=== PATIENT | female | born 1965 | race Caucasian/White ===

== ENCOUNTER 2017-05-08 20:23 | Inpatient (IN) | payer MEDICARE, BC, MEDICAID ==
[~2017-05-08] VITALS: Ht 152.4 cm; Wt 71.7 kg
[2017-05-08] MEDS ORDERED: ALPR3TAB PO (21:39)
--- NOTE | 2017-05-08 22:21 | NUR ---
Call placed to [facility] nephrology, Dr. Blackmon will be paged.
--- NOTE | 2017-05-08 22:25 | NUR ---
ANAYELI speaking to Dr. Blackmon.
[2017-05-08 22:45] LABS: *URINE HCG, QUAL NEGATIVE (NEGATIVE)
[2017-05-08 22:52] LABS: BASOPHILS % (AUTO) 0.4 % (0.0-2.0); EOSINOPHILS # (AUTO) 0.2 K/uL (0.0-0.7); EOSINOPHILS % (AUTO) 1.6 % (0.0-7.0); HEMATOCRIT 38.2 % (37-47); HEMOGLOBIN 12.9 G/DL (12.0-16.0); LYMPHOCYTES # (AUTO) 3.7 K/UL (0.8-4.8); LYMPHOCYTES % (AUTO) 30.2 % (20.5-51.5); MEAN CORPUSCULAR HEMOGLOBIN 32.1 UUG (27.0-31.0); MEAN CORPUSCULAR HGB CONC 34 g/dL (32.0-37.0); MEAN CORPUSCULAR VOLUME 95.2 FL (81.0-99.0); MONOCYTES # (AUTO) 0.7 K/UL (0.1-1.30); MONOCYTES % (AUTO) 5.8 % (0.0-11.0); NEUTROPHILS # (AUTO) 7.7 K/UL (1.8-8.9); PLATELET COUNT (AUTO) 352 K/UL (150-450); RED BLOOD CELL COUNT(AUTO) 4.01 MIL/UL (4.2-5.4); WHITE BLOOD COUNT (AUTO) 12.3 K/UL (4.0-11.2)
[2017-05-08 23:05] LABS: ALANINE AMINOTRANSFERASE 20 U/L (14-59); ALKALINE PHOSPHATASE 71 U/L (50-136); ASPARTATE AMINOTRANSFERASE 9 U/L (15-37); BILIRUBIN,DIRECT < 0.1 mg/dL (0.0-0.2); BILIRUBIN,TOTAL 0.1 mg/dL (0.2-1.0); CARBON DIOXIDE 30 mmol/L (21-32); CHLORIDE 104 mmol/L (98-107); CREATININE 0.7 mg/dL (0.6-1.3); GLUCOSE 91 mg/dL (74-106); POTASSIUM 3.9 mmol/L (3.5-5.1); TOTAL PROTEIN, SERUM 6.5 g/dL (6.4-8.2); UREA NITROGEN, BLOOD 24 mg/dL (7-18)
--- NOTE | 2017-05-08 23:17 | NUR ---
Pt. admitted to [facility], under care of Dr. Blackmon Belongs List completed
--- NOTE | 2017-05-08 23:25 | NUR ---
Admitted a 51 year old female from ER via wheelchair. AAO x 4, very talkative, presenting multiple health issues and complaints. Ambulated to the bathroom, voiding good. Routine admission care done. Plan of care initiated.
[2017-05-08 23:45] VITALS: BP 134/77
[2017-05-09] MEDS ORDERED: ONDANSETRON 4 MG/2 ML VIAL IV PRN
[2017-05-09] MEDS ORDERED: ACETAMINOPHEN 325 MG TABLET PO PRN
--- NOTE | 2017-05-09 01:02 | NUR ---
Patient asked what pain medication been ordered for her and when told her that there's Chula ordered, reacted and said "that does not work for me." Asked if she has pain, she said "I always in pain but nobody wants to give me pain medication" Offered Chula for a try or even to ease the pain a little that she has but declined, assuming that its not helping her at all.
[2017-05-09] MEDS: HYDROCODONE/APAP 5-325MG TABLET PO PRN ×2 (01:38→08:04)
[2017-05-09] MEDS: ZOLPIDEM 5 MG TABLET PO PRN (01:38)
--- NOTE | 2017-05-09 01:41 | NUR ---
Medicated for pain as needed and ordered. Will monitor.
[2017-05-09] MEDS ORDERED: HYDROCODONE/APAP 5-325MG TABLET ONE (01:47)
[2017-05-09] MEDS ORDERED: ZOLPIDEM 5 MG TABLET ONE (01:47)
[2017-05-09 05:30] VITALS: BP 105/59
--- NOTE | 2017-05-09 06:00 | NUR ---
Still sleeping during rounds. No further complaint presented. All needs attended and met. No significant event reported all night. Continue care as planned.
[2017-05-09 06:49] LABS: BASOPHILS # (AUTO) 0.1 K/uL (0.0-8.0); BASOPHILS % (AUTO) 0.6 % (0.0-2.0); EOSINOPHILS # (AUTO) 0.2 K/uL (0.0-0.7); EOSINOPHILS % (AUTO) 2.2 % (0.0-7.0); HEMATOCRIT 37.8 % (37-47); HEMOGLOBIN 12.9 G/DL (12.0-16.0); LYMPHOCYTES # (AUTO) 4.2 K/UL (0.8-4.8); MEAN CORPUSCULAR HEMOGLOBIN 32.2 UUG (27.0-31.0); MEAN CORPUSCULAR HGB CONC 34 g/dL (32.0-37.0); MEAN CORPUSCULAR VOLUME 94.7 FL (81.0-99.0); MONOCYTES # (AUTO) 0.7 K/UL (0.1-1.30); MONOCYTES % (AUTO) 6.1 % (0.0-11.0); NEUTROPHILS # (AUTO) 5.8 K/UL (1.8-8.9); NEUTROPHILS % (AUTO) 53.1 % (38.5-71.5); PLATELET COUNT (AUTO) 352 K/UL (150-450); RED BLOOD CELL COUNT(AUTO) 3.99 MIL/UL (4.2-5.4)
[2017-05-09 07:16] LABS: CREATININE 0.7 mg/dL (0.6-1.3); MAGNESIUM 1.8 mg/dL (1.8-2.4); PHOSPHOROUS 4.1 mg/dL (2.5-4.9)
[2017-05-09] MEDS: PANTOPRAZOLE SODIUM 40 MG TABLET.DR PO SCH (08:04)
--- NOTE | 2017-05-09 10:04 | NUR ---
PT REQUESTED VALIUM, XANAX, ATIVAN AND MORPHINE. STATING"NORCO AND AMBIEN DOES NOT WORK". EXPLAINED TO DR. OSWALD PATIENT'S CONCERNS. PER DR. OSWALD "VALIUM 5MG TID PRN, NO FOR XANAX, ATIVAN AND MORPHINE, INCREASE NORCO TO 10-325MG". ORDER NOTED, CARRIED OUT. EXPLAINED TO THE PT DOCTOR'S DECISION.
[2017-05-09 11:51] VITALS: BP 106/74
[2017-05-09] MEDS: DIAZEPAM 5 MG TABLET PO PRN ×2 (13:50→22:31)
[2017-05-09] MEDS: HYDROCODONE/APAP 10-325 MG TABLET PO PRN ×2 (16:12→22:45)
[2017-05-09 16:17] LABS: *BILIRUBIN,URIN NEGATIVE (NEGATIVE); *BLOOD, URINE NEGATIVE (NEGATIVE); *CLARITY,URINE CLEAR (CLEAR); *COLOR,URINE YELLOW (YELLOW); *KETONES,URINE NEGATIVE (NEGATIVE); *PROTEIN,URINE NEGATIVE (NEGATIVE); *UROBILINOGEN,URINE 0.2 E.U./dl (NORMAL); LEUKOCYTE ESTERASE ,URINE NEGATIVE (NEGATIVE); NITRITE, URINE NEGATIVE (NEGATIVE); UGLUCOSE NEGATIVE (NEGATIVE)
[2017-05-09 16:31] VITALS: BP 108/71
[2017-05-09 16:44] LABS: BACTERIA,URINE NONE SEEN /HPF (NONE SEEN); RBC,URINE 0-3 /HPF (0-3); SQUAMOUS EPITHELIAL CELL,UR FEW /HPF (NONE SEEN); WBC,URINE 0-3 /HPF (0-3)
--- NOTE | 2017-05-09 19:23 | NUR ---
NO CHANGES NOTED. PT IS LAYING IN BED COMFORTABLY. NO S/S OF RESPIRATORY DISTRESS NOTED. NO PAIN NOTED. ALL SAFETY NEEDS ARE MET.
[2017-05-09 20:00] VITALS: BP 101/65
[2017-05-10] MEDS: ZOLPIDEM 5 MG TABLET PO PRN ×2 (01:47→22:40)
[2017-05-10 04:00] VITALS: BP 109/74
[2017-05-10 05:21] VITALS: BP 109/74
[2017-05-10] MEDS: PANTOPRAZOLE SODIUM 40 MG TABLET.DR PO SCH (06:06)
[2017-05-10 06:47] LABS: *BILIRUBIN,URIN NEGATIVE (NEGATIVE); *BLOOD, URINE NEGATIVE (NEGATIVE); *KETONES,URINE NEGATIVE (NEGATIVE); *PROTEIN,URINE NEGATIVE (NEGATIVE); *UROBILINOGEN,URINE 0.2 E.U./dl (NORMAL); LEUKOCYTE ESTERASE ,URINE NEGATIVE (NEGATIVE); NITRITE, URINE NEGATIVE (NEGATIVE); PH,URINE 5.5 (5.0-8.0); UGLUCOSE NEGATIVE (NEGATIVE)
[2017-05-10 06:50] LABS: *CLARITY,URINE SLIGHTLY HAZY (CLEAR); *COLOR,URINE LIGHT YELLOW (YELLOW)
[2017-05-10 06:59] LABS: BACTERIA,URINE FEW /HPF (NONE SEEN); RBC,URINE NONE SEEN /HPF (0-3); WBC,URINE 0-3 /HPF (0-3)
[2017-05-10 07:00] LABS: SQUAMOUS EPITHELIAL CELL,UR FEW /HPF (NONE SEEN)
[2017-05-10] MEDS ORDERED: PANTOPRAZOLE SODIUM 40 MG TABLET.DR PO SCH (07:00)
[2017-05-10 07:25] LABS: BASOPHILS % (AUTO) 0.4 % (0.0-2.0); EOSINOPHILS # (AUTO) 0.2 K/uL (0.0-0.7); EOSINOPHILS % (AUTO) 2.3 % (0.0-7.0); HEMATOCRIT 41.4 % (37-47); HEMOGLOBIN 14.2 G/DL (12.0-16.0); LYMPHOCYTES # (AUTO) 2.7 K/UL (0.8-4.8); LYMPHOCYTES % (AUTO) 30.2 % (20.5-51.5); MEAN CORPUSCULAR HEMOGLOBIN 32.6 UUG (27.0-31.0); MEAN CORPUSCULAR HGB CONC 34 g/dL (32.0-37.0); MEAN CORPUSCULAR VOLUME 95.3 FL (81.0-99.0); MONOCYTES # (AUTO) 0.7 K/UL (0.1-1.30); MONOCYTES % (AUTO) 7.8 % (0.0-11.0); NEUTROPHILS # (AUTO) 5.3 K/UL (1.8-8.9); NEUTROPHILS % (AUTO) 59.3 % (38.5-71.5); PLATELET COUNT (AUTO) 355 K/UL (150-450); RED BLOOD CELL COUNT(AUTO) 4.34 MIL/UL (4.2-5.4); WHITE BLOOD COUNT (AUTO) 8.9 K/UL (4.0-11.2)
[2017-05-10 08:04] LABS: CREATININE 0.7 mg/dL (0.6-1.3); MAGNESIUM 1.8 mg/dL (1.8-2.4); PHOSPHOROUS 4.6 mg/dL (2.5-4.9); POTASSIUM 4.1 mmol/L (3.5-5.1)
[2017-05-10 08:08] LABS: *CREATININE,URINE 27.7 mg/dL (30-125)
[2017-05-10 08:14] LABS: *URINE TOTAL PROTEIN RANDOM < 6.0 mg/dL (<150/24HR)
[2017-05-10] MEDS: HYDROCODONE/APAP 10-325 MG TABLET PO PRN (09:29)
[2017-05-10] MEDS: DIAZEPAM 5 MG TABLET PO PRN ×2 (10:55→21:35)
[2017-05-10 11:51] VITALS: BP 110/72
[2017-05-10] MEDS: OXYCODONE HCL 5 MG TABLET PO PRN ×2 (15:35→21:35)
[2017-05-10 15:44] VITALS: BP 118/71
[2017-05-10 20:00] VITALS: BP 121/76
[2017-05-11] MEDS: OXYCODONE HCL 5 MG TABLET PO PRN ×3 (03:20→16:35)
[2017-05-11 04:29] VITALS: BP 112/78
[2017-05-11] MEDS: DIAZEPAM 5 MG TABLET PO PRN ×2 (04:54→14:40)
--- NOTE | 2017-05-11 07:00 | NUR ---
pt is laying in bed comfortably. no s/s of respiratory distress noted. no pain reported. all safety needs are met. will continue to monitor.
[2017-05-11] MEDS: PANTOPRAZOLE SODIUM 40 MG TABLET.DR PO SCH (07:15)
--- NOTE | 2017-05-11 07:54 | NUR ---
PT NOT SLEEPING WELL OVERNIGHT, VERBALIZED THAT MEDS NOT EFFECTIVELY WORKING, PT HOME DOSE NOTICED FROM HER RECORD AND IS LESS THAN IS ORDERED. NO SEIZURE ACTIVITY NOTED OVERNIGHT,NON REPORTED,AMBULATES TO BATHROOM WITHOUT PROBLEM. CONTINUE MEDICATING OXYCODONE AND VALIUM. VSS,AFEBRILE. ENDORSED TO NEXT SHIFT AND MADE AWARE PT'S CONCERN .
[2017-05-11] MEDS ORDERED: HYDR-548 PO (08:12)
[2017-05-11 13:13] VITALS: BP 114/70
[2017-05-11 16:36] VITALS: BP 115/75
--- NOTE | 2017-05-11 16:59 | NUR ---
The patient will be discharged today to [facility], [place] [ ; [address] [place] [address]] via [facility]. Left a message to Carmen, from [facility] [ ] abut she did not call back. Marek from [facility] confirmed that they have a contract with [facility] and he spoke to Carmen about taking the patient. He confirmed admitting her today. The patient also spoke to Carmen and is in agreement with her discharge to [facility] today. Her RN, Sonya, is aware of her discharge plan and will call the facility for the report.
--- NOTE | 2017-05-11 17:43 | NUR ---
pt refused to sign d/c paperwork, states "I want dr. thapa to give working pain medications, not NorCo, Until than I won't sign". Education provided, witnessed by another nurse.
--- NOTE | 2017-05-11 18:30 | NUR ---
discharge note: pt is ready to be d/c. no s/s of respiratory distress noted. No pain noted. All safety needs are met. IV is removed. Pt is getting d/c to [facility].
== END 2017-05-11 18:45 | DRG 543 ==
LOC: ER 20:32 → MED 23:12
PROVIDERS: ADMIT Internal Medicine; ATTEND Internal Medicine
DX: M48.56XA Collapsed vertebra, not elsewhere classified, lumbar region, initial encounter for fracture (principal); I69.351 Hemiplegia and hemiparesis following cerebral infarction affecting right dominant side; G89.29 Other chronic pain; G40.909 Epilepsy, unspecified, not intractable, without status epilepticus; D72.829 Elevated white blood cell count, unspecified; Z88.8 Allergy status to other drugs, medicaments and biological substances; F17.291 Nicotine dependence, other tobacco product, in remission; M51.26 Other intervertebral disc displacement, lumbar region; F41.9 Anxiety disorder, unspecified
CPT/HCPCS: 36415; 83735; 84100; 84156; 84300; 84703; 85025; 87086; 97110; 97116; 97161; A4663; J2405